=== PATIENT | female | born 1940 | race Asian ===

== ENCOUNTER 2018-05-06 14:24 | Outpatient (CLI) | payer MEDICARE ==
--- NOTE | 2018-05-06 15:27 | MMO ---
BILATERAL SCREENING MAMMOGRAM: Date: 05/06/18 HISTORY: Screening. COMPARISON: Mammogram from 2015. TECHNIQUE: Bilateral screening CC and MLO mammograms. This patient's mammogram was interpreted with the assistance of computer-aided detection. FINDINGS: Benign calcifications present in both breasts. There is right surgical clip. No suspicious mass, architectural distortion, or microcalcifications. IMPRESSION: BIRADS 2: Benign Finding(s) Continued annual mammographic screening is recommended. POS: JAIME
== END 2018-05-06 14:25 | disposition home or self-care (01) ==
LOC: SCSMAMMO 14:24
PROVIDERS: ATTEND Family Medicine
DX: Z12.31 Encounter for screening mammogram for malignant neoplasm of breast (principal)
CPT/HCPCS: 77067

== ENCOUNTER 2018-09-17 13:09 | Outpatient (CLI) | payer MEDICARE ==
--- NOTE | 2018-09-17 15:09 | ULT ---
RENAL SONOGRAM: DATE: 09/17/2018. HISTORY: Chronic kidney disease. COMPARISON: 11/25/2014. FINDINGS: The right kidney measures 9.4 cm x 5.3 cm with the left kidney measuring 9.4 cm x 4.4 cm. There are a few tiny anechoic cystic structures in the inferior pole of each kidney which measure less than a c entimeter and may represent tiny cysts. There is no hydronephrosis or solid renal mass visualized. The heterogeneous mass-like structure within the superior pole right kidney on the prior examination previously measuring 1.4 cm is again present with the greatest dimension on the current exam of 1.3 c m but has less of a heterogeneous appearance and is hypoechoic to anechoic in appearance. This may a lso represent a small cyst, especially given slight interval decrease in size from prior exam and may have been related to a cyst with a small amount of hemorrhage or debris on the prior exam. No renal calculus or perinephric fluid collection is present. The urinary bladder is decompressed and not well evaluated. Multiple echogenic foci are seen in the gallbladder lumen related to cholelithiasis. IMPRESSION: 1. Tiny bilateral renal cysts with stable hypoechoic cystic structure in the superior pole right kid mare which demonstrated a heterogeneous appearance on the prior study; this lesion is less heterogeneo us on the current study but is stable in size dating back to 2014 suggesting this is a benign finding and probably represents a cyst with probable debris or hemorrhage noted within the cyst on the prior exam. No definite solid renal mass is seen. 2. No evidence of hydronephrosis. 3. Cholelithiasis. POS: JAIME
== END 2018-09-17 13:10 | disposition home or self-care (01) ==
LOC: BICULT 13:09
PROVIDERS: ATTEND Internal Medicine Nephrology
DX: N18.3 Chronic kidney disease, stage 3 (moderate) (principal); N28.1 Cyst of kidney, acquired; K80.20 Calculus of gallbladder without cholecystitis without obstruction
CPT/HCPCS: 76770